=== PATIENT | male | born 1980 | race Caucasian/White ===

== ENCOUNTER → 2018-07-28 | Outpatient (CLI) | payer BC ==
--- NOTE | 2018-07-28 14:49 | XR ---
EXAMINATION TYPE: XR ribs RT w pa chest xray DATE OF EXAM: 07/28/2018 COMPARISON: 02/20/2013 TECHNIQUE: PA view of the chest and 4 views of the right ribs are submitted. HISTORY: Pain FINDINGS: Deformity lateral margin of the right fifth and sixth rib. No pneumothorax. Lungs are clear. Heart si ze is mildly enlarged. No pleural effusion. IMPRESSION: 1. Mildly displaced fractures lateral margin right fifth and sixth rib.
== END ==
LOC: RADXRMAIN 13:56
PROVIDERS: ATTEND Nurse Practitioner Family
DX: S22.41XA Multiple fractures of ribs, right side, initial encounter for closed fracture (principal)

== ENCOUNTER → 2018-12-08 | Outpatient (CLI) | payer BC ==
--- NOTE | 2018-12-12 09:24 | ECHOF ---
Referral Reason:I10 Hypertension MEASUREMENTS -------- HEIGHT: 182.9 cm WEIGHT: 217.7 kg BP: 152/79 RVIDd: 3.1 cm (< 3.3) IVSd: 1.6 cm (0.6 - 1.1) LVIDd: 5.3 cm (3.9 - 5.3) LVPWd: 1.6 cm (0.6 - 1.1) IVSs: 2.1 cm LVIDs: 3.5 cm LVPWs: 1.7 cm LA Diam: 4.0 cm (2.7 - 3.8) Ao Diam: 2.9 cm (2.0 - 3.7) EPSS: 1.2 cm MV E Andres: 0.89 m/s MV DecT: 183 ms MV A Andres: 0.63 m/s MV E/A Ratio: 1.42 RAP: 5.00 mmHg RVSP: 34.45 mmHg MV EF SLOPE: 102.11 mm/s (70 - 150) MV EXCURSION: 1.34 cm (> 18.000) FINDINGS -------- Sinus rhythm. This was a technically difficult study with suboptimal views. The left ventricular size is normal. There is moderate concentric left ventricular hypertrophy. O verall left ventricular systolic function is normal with, an EF between 60 - 65 %. The right ventricle is normal in size. The left atrial size is normal. The right atrium was not well visualized. Lumason used The aortic valve was not well visualized. The mitral valve is normal. Mild tricuspid regurgitation present. Right ventricular systolic pressure is normal at < 35 mmHg. The pulmonic valve was not well visualized. The aortic root size is normal. The inferior vena cava was not well visualized. There is no pericardial effusion. CONCLUSIONS -------- 1. Sinus rhythm. 2. This was a technically difficult study with suboptimal views. 3. The left ventricular size is normal. 4. There is moderate concentric left ventricular hypertrophy. 5. Overall left ventricular systolic function is normal with, an EF between 60 - 65 %. 6. The right ventricle is normal in size. 7. The left atrial size is normal. 8. The right atrium was not well visualized. 9. Lumason used 10. The aortic valve was not well visualized. 11. The mitral valve is normal. 12. Mild tricuspid regurgitation present. 13. Right ventricular systolic pressure is normal at < 35 mmHg. 14. The pulmonic valve was not well visualized. 15. The aortic root size is normal. 16. The inferior vena cava was not well visualized. 17. There is no pericardial effusion. STRUCTURAL MANAGER: ANTONY Lopez
== END | disposition home or self-care (01) ==
LOC: RADECHMAIN 13:00
PROVIDERS: ATTEND Internal Medicine
DX: I11.9 Hypertensive heart disease without heart failure (principal); I07.1 Rheumatic tricuspid insufficiency
CPT/HCPCS: 93306; Q9950

== ENCOUNTER → 2019-05-03 | Outpatient (CLI) | payer BC ==
--- NOTE | 2019-05-03 18:47 | US ---
EXAMINATION TYPE: US venous doppler duplex LE RT DATE OF EXAM: 05/03/2019 6:24 PM COMPARISON: US 2016 CLINICAL HISTORY: I82.401 DVT of rt lower extremity. DVT of right lower extremity per order. Tenderne ss in right leg x 6 days. No hx of DVT. Patient is not taking blood thinners. SIDE PERFORMED: Right TECHNIQUE: The lower extremity deep venous system is examined utilizing real time linear array sonog carlo with graded compression, doppler sonography and color-flow sonography. VESSELS IMAGED: Common Femoral Vein Deep Femoral Vein Greater Saphenous Vein * Femoral Vein Popliteal Vein Small Saphenous Vein * Proximal Calf Veins (* superficial vessels) Very limited exam due to large body habitus. EIV not visualized. Right Leg: No evidence of DVT in veins imaged at this time. Exam is limited. IMPRESSION: Suboptimal study without acute DVT in the right lower extremity.
== END | disposition home or self-care (01) ==
LOC: RADUSMAIN 17:53
PROVIDERS: ATTEND Internal Medicine
DX: I82.401 Acute embolism and thrombosis of unspecified deep veins of right lower extremity (principal)

== ENCOUNTER → 2019-11-09 | Outpatient (CLI) | payer BC ==
--- NOTE | 2019-11-09 14:07 | P.HPBAR ---
Bariatric H&P - History & Physicial H&P Date: 11/09/19 History & Physicial: Visit/CC: Patient initial contact: Initial weight: Initial weight in pounds: Height: Initial BMI: Last weight: Current weight: Current weight in pounds: Current BMI: [place] body weight (based on NIH guidelines): Excess body weight loss: The patient is a 39 year-old M who presents for Bariatric Assessment. Patient here today for new patient bariatric evaluation. Patient is interested in sleeve gastrectomy. Patient suffers from hypertension, varicose veins, mild GERD symptoms. No history of DVT or dysphagia. Patient did smoke up until 6.5 years ago. No abdominal surgeries. No history of DVT or dysphagia. Does have history of venous stasis however. Has had venous ulcers. BMI 68. Review of Systems The patient denies any acute changes in vision or hearing, no dysphagia or odynophagia, no chest pain or shortness of breath, no dysuria or hematuria, no headache, no runny nose, no rectal bleeding or melena, no unexplained weight loss Past Medical History Past Medical History: No Reported History History of Any Multi-Drug Resistant Organisms: None Reported Additional Past Surgical History / Comment(s): VEIN STRIPPING Smoking Status: Never smoker Past Alcohol Use History: Occasional Past Drug Use History: None Reported Surgical - Exam Physical exam: General: Well-developed, well-nourished HEENT: Normocephalic, sclerae nonicteric Abdomen: Nontender, nondistended Extremities: Bilateral lower extremity edema with rubor right greater than left Neuro: Alert and oriented Bariatric Assessment & Plan (1) Morbid obesity with BMI of 60.0-69.9, adult Narrative/Plan: 39-year-old male with morbid obesity and associated comorbidities. Options of sleeve gastrectomy and gastric bypass discussed in detail. Both the risks and benefits of both procedures reviewed. The expected increased weight based on averages of the bypass over the sleeve was reviewed. Despite that patient still leaning towards sleeve gastrectomy which is not unreasonable given the risk profile. Patient will continue to consider these options. In the meanwhile will plan preoperative EGD and lab work. Await medical clearance and support letters. Await psych eval. Patient here today with his who is also interested in sleeve gastrectomy. Status: Acute Bariatric Checklist Checklist: Plan: Checklist: EGD: 1. Hiatal hernia: 2. H. Pylori: HgbA1c: Vitamin D: Smoking: Never smoker Primary care physician referral: Psychiatry clearance: Cardiology clearance: Sleep study: Diet journal: VTE risk score: VTE risk level: Rehab needs at discharge:
[2019-11-09 14:24] VITALS: BP 120/82; PULSE 72; RESP 16; TEMP 98.6; BMI 68.0
[2019-11-09 14:59] LABS: HCT 43.2 % (39.0-53.0); MCHC 34.6 g/dL (31.0-37.0); MCV 86.5 fL (80.0-100.0); Mean Platelet Volume 7.8; Platelet Count 188 k/uL (150-450); RDW 13.2 % (11.5-15.5); WBC 7.8 k/uL (3.8-10.6)
[2019-11-09 20:15] LABS: % Iron Saturation 16.9 (15.00-50.00); African American GFR (CKD) 137.8 (60.0-200.0); Albumin 4.3 g/dL (3.80-4.90); Albumin/Globulin Ratio 1.65 (1.60-3.17); Anion Gap 7.6 mmol/L (4.00-12.00); BUN/Creat Ratio 18.57 Ratio (12.00-20.00); Calcium 9.7 mg/dL (8.7-10.3); Carbon Dioxide 28.4 mmol/L (21.6-31.8); Globulin 2.6 g/dL (1.6-3.3); Non-African American GFR(CKD) 118.9 (60.0-200.0); Potassium 3.7 mmol/L (3.5-5.5); Total Bilirubin 0.5 mg/dL (0.3-1.2); Total Protein 6.9 g/dL (6.2-8.2)
[2019-11-09 21:24] LABS: Folate, Serum 19.5 ng/mL
[2019-11-09 21:34] LABS: Hemoglobin A1C 5.5 % (4.0-6.0)
== END | disposition home or self-care (01) ==
LOC: BARWHC3 13:28
PROVIDERS: ATTEND Surgery
DX: E66.01 Morbid (severe) obesity due to excess calories (principal); Z68.44 Body mass index [BMI] 60.0-69.9, adult; K90.89 Other intestinal malabsorption; E55.9 Vitamin D deficiency, unspecified
CPT/HCPCS: 80053; 82306; 82607; 82746; 83036; 83540; 83550; 84425; 85027; 86769; 93005; 99211

== ENCOUNTER 2019-12-12 10:40 | Day surgery (SDC) | payer BC ==
[2019-12-11 08:51] VITALS: BMI 68.5
[~2019-12-12 10:40] MED LIST: LACTATED RINGERS 1,000 ML IV SCH
[2019-12-12] MEDS ORDERED: LACTATED RINGERS 1,000 ML IV ONE (10:55)
[2019-12-12 11:01] VITALS: TEMP 98.1
--- NOTE | 2019-12-12 11:42 | P.GSHP ---
History of Present Illness H&P Date: 12/12/19 Chief Complaint: GERD 39-year-old male here today for upper endoscopy. Patient is being evaluated for sleeve gastrectomy. Patient with mild reflux. No dysphagia. Past Medical History Past Medical History: Heart Failure, Hypertension History of Any Multi-Drug Resistant Organisms: None Reported Additional Past Surgical History / Comment(s): VEIN STRIPPING, laser sx maricruz legs, wisdom teeth Past Anesthesia/Blood Transfusion Reactions: No Reported Reaction Past Psychological History: Anxiety Additional Psychological History / Comment(s): with procedures Past Alcohol Use History: Occasional Additional Past Alcohol Use History / Comment(s): quit smoking 2013, smoked 1 to 1 and 1/2ppd for 14 yrs Past Drug Use History: None Reported - Past Family History Mother Family Medical History: Cancer Additional Family Medical History / Comment(s): breast and thyroid Medications and Allergies Home Medications Medication Instructions Recorded Confirmed Type Furosemide [Lasix] 20 mg PO HS 11/09/19 12/12/19 History Metoprolol Succinate [Toprol XL] 25 mg PO HS 11/09/19 12/12/19 History Lisinopril-Hctz 20-12.5 mg 2 tab PO HS 12/11/19 12/12/19 History [Zestoretic 20-12.5] Allergies Allergy/AdvReac Type Severity Reaction Status Date / Time Penicillins Allergy Chest Pain Verified 12/12/19 10:53 Surgical - Exam Vital Signs Temp Pulse Resp BP Pulse Ox 98.1 F 68 16 138/74 98 12/12/19 10:59 12/12/19 10:59 12/12/19 10:59 12/12/19 10:59 12/12/19 10:59 Physical exam: General: Well-developed, well-nourished HEENT: Normocephalic, sclerae nonicteric Abdomen: Nontender, nondistended Extremities: No edema Neuro: Alert and oriented Assessment and Plan (1) GERD (gastroesophageal reflux disease) Narrative/Plan: Will proceed with upper endoscopy at this time Current Visit: Yes Status: Acute Code(s): K21.9 - GASTRO-ESOPHAGEAL REFLUX DISEASE WITHOUT ESOPHAGITIS SNOMED Code(s): 286044594
[2019-12-12] MEDS ORDERED: LIDOCAINE 1% INJ 10MG/ML (20 ML MDV) ONE (11:43)
[2019-12-12] MEDS ORDERED: PROPOFOL 10 MG/ML 20 ML VIAL IV ONE (11:43)
--- NOTE | 2019-12-12 11:53 | P.PCN ---
Date of Procedure: 12/12/19 Procedure(s) Performed: EPreoperative Dx: GERD, presurgical Postoperative Dx: Minimal gastritis Procedure: EGD with Bx Anesthesia: Sedation Endoscopist: Dr. Monk Specimens: Antrum Endoscopic Procedure: The patient was on the endoscopy table in the left decubitus position. The Olympus gastroscope was inserted into the oropharynx and passed under direct visualization to the region of the third portion of the duodenum. From that point the scope was slowly withdrawn inspecting all surfaces carefully. There were no neoplastic inflammatory or polypoid lesions throughout the duodenum. The pylorus was widely patent. The stomach was carefully inspected. There was minimal gastritis present. A biopsy of the antrum took place to rule out H. pylori. Retroflexion revealed a normal hiatus. The esophagus was then carefully examined. There were no neoplastic inflammatory or polypoid lesions throughout the visualized esophagus. The patient was then taken to the recovery room in stable condition per anesthesia guidelines. Recommendations: Await biopsy results. Continue bariatric workup Disposition: observation
[2019-12-12 11:59] VITALS: RESP 20
[2019-12-12 12:22] VITALS: BP 106/72; PULSE 59
== END 2019-12-12 12:35 | disposition home or self-care (01) ==
LOC: ORWHC2ENDO 10:40
PROVIDERS: ATTEND Surgery
DX: K21.9 Gastro-esophageal reflux disease without esophagitis (principal); K29.50 Unspecified chronic gastritis without bleeding; Z98.84 Bariatric surgery status; I11.0 Hypertensive heart disease with heart failure; I50.9 Heart failure, unspecified; F41.9 Anxiety disorder, unspecified; E66.01 Morbid (severe) obesity due to excess calories; Z87.891 Personal history of nicotine dependence; Z80.9 Family history of malignant neoplasm, unspecified; Z79.899 Other long term (current) drug therapy; Z88.0 Allergy status to penicillin; Z68.44 Body mass index [BMI] 60.0-69.9, adult
CPT/HCPCS: 88305; 43239; J2001; J2704

== ENCOUNTER → 2019-12-18 | Outpatient (CLI) | payer BC ==
[2019-12-18 11:54] VITALS: BMI 68.0
== END | disposition home or self-care (01) ==
LOC: BARWHC3 08:43
PROVIDERS: ATTEND Surgery
DX: E66.01 Morbid (severe) obesity due to excess calories (principal); Z71.3 Dietary counseling and surveillance
CPT/HCPCS: 97804; 99211

== ENCOUNTER → 2020-01-02 | Outpatient (CLI) | payer BC ==
[2020-01-02 13:37] VITALS: BP 136/79; PULSE 74; RESP 16; TEMP 97.8; BMI 67.8
--- NOTE | 2020-01-02 15:02 | P.BASOAP ---
Subjective Progress Note Date: 01/02/20 Principal diagnosis: Morbid obesity Patient remains interested in sleeve gastrectomy. Returning after recent upper endoscopy showed minimal gastritis. Patient has obtained medical clearance with low to medium risk for his primary care physician. Otherwise no changes to the previous history and physical. Objective - Vital Signs Vital signs: Vital Signs Temp 97.8 F 01/02/20 13:34 Pulse 74 01/02/20 13:34 Resp 16 01/02/20 13:34 BP 136/79 01/02/20 13:34 Pulse Ox Intake & Output 01/01/20 01/02/20 01/02/20 18:59 06:59 18:59 Weight 228.611 kg - Exam Physical exam: General: Well-developed, well-nourished HEENT: Normocephalic, sclerae nonicteric Abdomen: Nontender, nondistended Extremities: No edema Neuro: Alert and oriented Assessment/Plan (1) Morbid obesity with BMI of 60.0-69.9, adult Narrative/Plan: 39-year-old male remains interested in sleeve gastrectomy. Gastric bypass and sleeve options once again reviewed. Surgical consent form reviewed with patient and his in detail. Medical clearance obtained from his primary care physician. We'll proceed with sleeve gastrectomy in the near future. Will stagger his surgery with his 's surgery with hers being first. All questions answered. Plan: Date: 01/02/20 Initial Weight: 229.064 kg Initial BMI: 68.0 Current Weight: 228.611 kg Current BMI: 67.8 Type of Surgery: Vertical Sleeve Gastrectomy Total Volume in Band: Previous Volume: Volume Removed: Volume Added: Band Size:
== END | disposition home or self-care (01) ==
LOC: BARWHC3 13:00
PROVIDERS: ATTEND Surgery
DX: E66.01 Morbid (severe) obesity due to excess calories (principal); Z68.44 Body mass index [BMI] 60.0-69.9, adult; K29.70 Gastritis, unspecified, without bleeding
CPT/HCPCS: 99211

== ENCOUNTER → 2020-03-05 | Outpatient (CLI) | payer BC ==
[2020-03-05 07:59] LABS: Basophils % (A) 1 %; Eosinophils # (A) 0.6 k/uL (0-0.7); Eosinophils % (A) 8 %; HCT 43.4 % (39.0-53.0); Lymphocytes # (A) 1.9 k/uL (1.0-4.8); Lymphocytes % (A) 27 %; MCH 30.4 pg (25.0-35.0); MCHC 34.5 g/dL (31.0-37.0); MCV 88.2 fL (80.0-100.0); Monocytes # (A) 0.4 k/uL (0-1.0); Monocytes % (A) 6 %; Neutrophils # (A) 3.9 k/uL (1.3-7.7); Neutrophils % (A) 56 %; Platelet Count 167 k/uL (150-450); RBC 4.92 m/uL (4.30-5.90)
[2020-03-05 08:11] LABS: ALT 53 U/L (4-49); AST 40 U/L (17-59); African American GFR (CKD) >90 (>60 ml/min/1.73 sqM); Albumin 4.1 g/dL (3.5-5.0); Alkaline Phosphatase 58 U/L (38-126); Anion Gap 8 mmol/L; Blood Urea Nitrogen 15 mg/dL (9-20); Calcium 9.5 mg/dL (8.4-10.2); Carbon Dioxide 29 mmol/L (22-30); Chloride 99 mmol/L (98-107); Glucose 94 mg/dL (74-99); Non-African American GFR(CKD) >90 (>60 ml/min/1.73 sqM); Potassium 3.9 mmol/L (3.5-5.1); Sodium 136 mmol/L (137-145); Total Bilirubin 0.8 mg/dL (0.2-1.3); Total Protein 7.1 g/dL (6.3-8.2)
== END | disposition home or self-care (01) ==
LOC: LABPAT 07:14
PROVIDERS: ATTEND Surgery
DX: Z01.818 Encounter for other preprocedural examination (principal)
CPT/HCPCS: 36415; 80053; 85025

== ENCOUNTER 2020-03-11 08:39 | Inpatient (IN) | payer BC ==
[~2020-03-11 08:39] MED LIST changes: +ACETAMINOPHEN TAB 500 MG TAB PO ONE; +DEXAMETHASONE SOD PHOSPHATE 10 MG/ML 1 ML VIAL IV ONE; +ENOXAPARIN 40 MG/0.4 ML SYRINGE SQ ONE; -LACTATED RINGERS 1,000 ML IV SCH; +ONDANSETRON 4 MG/2 ML VIAL IVP ONE; +SCOPOLAMINE 1.5MG/72HR PATCH TRANSDERM ONE; +ceFAZolin 3 GM in SODIUM CHLORIDE 0.9% 100 ML IVPB ONE
[2020-03-11] MEDS: LACTATED RINGERS 1,000 ML IV SCH ×2 (09:09→22:59)
--- NOTE | 2020-03-11 09:13 | P.GSHP ---
History of Present Illness H&P Date: 03/11/20 Chief Complaint: Morbid obesity 39-year-old male known to our service. Patient is here today for elective sleeve gastrectomy. Patient suffers from hypertension and varicose veins mild GERD symptoms. No history of DVT or dysphagia. No current tobacco use. Recent EGD showed mild gastritis. BMI when seen in the office was 68. Patient does have a history of venous stasis. Past Medical History Past Medical History: Hypertension, Sleep Apnea/CPAP/BIPAP Additional Past Medical History / Comment(s): states enlarged heart, sleep apnea- no machine, varicose veins. History of Any Multi-Drug Resistant Organisms: None Reported Additional Past Surgical History / Comment(s): VEIN STRIPPING, laser sx maricruz legs, wisdom teeth, EGD Past Anesthesia/Blood Transfusion Reactions: No Reported Reaction Past Psychological History: No Psychological Hx Reported Smoking Status: Former smoker Past Alcohol Use History: Occasional Additional Past Alcohol Use History / Comment(s): quit smoking 2013, smoked 1-1 1/2 ppd for 14 yrs. Past Drug Use History: None Reported - Past Family History Mother Family Medical History: Cancer Additional Family Medical History / Comment(s): breast and thyroid Medications and Allergies Home Medications Medication Instructions Recorded Confirmed Type Furosemide [Lasix] 20 mg PO HS 11/09/19 03/07/20 History Lisinopril-Hctz 20-12.5 mg 2 tab PO HS 12/11/19 03/07/20 History [Zestoretic 20-12.5] Metoprolol Succinate [Toprol XL] 50 mg PO DAILY 03/07/20 03/07/20 History Multivit-Min/Folic/Vit K/Lycop 1 each PO DAILY 03/07/20 03/07/20 History [Men's Multivitamin Tablet] Allergies Allergy/AdvReac Type Severity Reaction Status Date / Time Penicillins Allergy Chest Verified 03/07/20 09:22 Pain-unsure if it was panic attack. Surgical - Exam Vital Signs Temp Pulse Resp BP Pulse Ox 98.0 F 76 16 119/66 99 03/11/20 09:01 03/11/20 09:01 03/11/20 09:01 03/11/20 09:01 03/11/20 09:01 Physical exam: General: Well-developed, well-nourished HEENT: Normocephalic, sclerae nonicteric Abdomen: Nontender, nondistended Extremities: No edema Neuro: Alert and oriented Assessment and Plan (1) Morbid obesity with BMI of 60.0-69.9, adult Narrative/Plan: Will proceed with sleeve gastrectomy at this time. The risks of bleeding, infection, stenosis, stricture, leak, abscess, fistula formation, peritonitis, poor weight loss, reflux, vomiting, conversion to an open procedure, aborting sleeve gastrectomy, ME, PE, DVT, and were discussed. The patient understands and wishes to proceed. Current Visit: No Status: Acute Code(s): E66.01 - MORBID (SEVERE) OBESITY DUE TO EXCESS CALORIES; Z68.44 - BODY MASS INDEX (BMI) 60.0-69.9, ADULT SNOMED Code(s): 105311907
[2020-03-11] MEDS ORDERED: MIDAZOLAM 2 MG/2 ML VIAL ONE (11:01)
[2020-03-11] MEDS ORDERED: PROPOFOL 10 MG/ML 20 ML VIAL IV ONE (11:01)
[2020-03-11] MEDS ORDERED: PHENYLEPHRINE-0.9% NACL SYG 1 MG/10 ML SYRINGE ONE (11:01)
[2020-03-11] MEDS ORDERED: SUCCINYLCHOLINE CHLORIDE VIAL 200 MG/10 ML VIAL IV ONE (11:01)
[2020-03-11] MEDS ORDERED: ROCURONIUM 10 MG/ML (10 ML VIAL) IV ONE (11:01)
[2020-03-11] MEDS ORDERED: NEOSTIGMINE 1 MG/ML 10 ML VIAL ONE (11:01)
[2020-03-11] MEDS ORDERED: GLYCOPYRROLATE 0.2 MG/ML 2 ML VIAL ONE (11:01)
[2020-03-11] MEDS ORDERED: fentaNYL (PF) 50 MCG/ML 2 ML AMP ONE (11:01)
[2020-03-11] MEDS ORDERED: BUPIVACAINE (PF) 0.25% 30 ML VIAL SQ ONE ×3 (11:37→11:49)
[2020-03-11] MEDS ORDERED: ONDANSETRON 4 MG/2 ML VIAL IVP PRN (13:23)
[2020-03-11] MEDS ORDERED: SIMETHICONE 40 MG/0.6 ML DROPS 2,000 MG/30 ML BOTTLE PO PRN (13:23)
[2020-03-11] MEDS ORDERED: diphenhydrAMINE 50 MG/ML 1 ML VIAL IVP PRN (13:23)
[2020-03-11] MEDS ORDERED: HYOSCYAMINE ORAL DROPS 1.875 MG/15 ML BOTTLE PO PRN (13:23)
[2020-03-11] MEDS ORDERED: NALOXONE 0.4 MG/ML 1 ML VIAL IV PRN (13:23)
--- NOTE | 2020-03-11 13:28 | P.OP ---
Date of Procedure: 03/11/20 Procedure(s) Performed: PREOPERATIVE DIAGNOSIS: Morbid obesity, hypertension, GERD POSTOPERATIVE DIAGNOSIS: Same PROCEDURE: Laparoscopic sleeve gastrectomy SURGEON: Aleshia EBL: Minimal ANESTHESIA: General COMPLICATIONS: None OPERATIVE PROCEDURE: Patient was placed in the operating table in the supine position. He was placed under general anesthesia at that time. The abdomen was prepped and draped in sterile fashion after the patient was placed in lithotomy. A 5 mm optical trocar was used to enter the abdominal cavity in the left upper quadrant. Insufflation took place to 15 millimeters mercury. An additional right subxiphoid 5 mm trocar was then placed under direct visualization and then removed. The patient had some adhesions between the omentum and the left upper abdominal wall that required dissection using the LigaSure device. Following that 2 additional 5 mm trochars were placed in the right upper quadrant and left upper quadrant under direct visualization and a 15 mm trocar in the supraumbilical location. The liver was retracted using a medium Cameron liver retractor through the right subxiphoid trocar site. The hiatus was inspected. The patient had no visible hiatal hernia At that point I moved to the mid aspect of the greater curvature the stomach. The short gastric vasculature was divided using a LigaSure device proximally. I then switched and divided the short gastrics distally to a 3-4 cm from the pylorus. The dissection took place up to the left diaphragmatic crura at that point. The posterior short gastrics were likewise divided using the LigaSure device. Once the stomach was fully mobilized the blunt tipped 40-[place] bougie dilator was advanced into the stomach and advanced all the way to the prepyloric location. A black echelon 60 stapler was utilized and fired tangentially across the antrum taking care to avoid narrowing at the incisura angularis. Our second firing of the stapler was also a black load. Subsequent firings of the stapler took place. A total of 4 green echelon 60 staplers with seam guard took place proximally staying on the outer edge of our dilator. Once we reached the most proximal portion of the stomach a single firing of the gold echelon 60 stapler without seen guard took place. The oral gastric tube was reinserted. The stomach was insufflated with approximately 100 mL of methylene blue. No evidence of leak or obstruction was seen. The distal aspect of the sleeve was then reapproximated to the gastrosplen ic and gastrocolic ligament using a short running 2-0 strata fix suture. This was done to prevent kinking or twisting of the sleeve. Tisseel fibrin glue was used along the length of the staple line. The stomach remnant was removed from the 15 mm trocar site without difficulty. The fascia at the 15 more site was closed using interrupted 0 Vicryl sutures with the laparoscopic suture passer and Vlad Mitchel technique. The insufflation was evacuated. The skin at all 5 incisions were closed using 4-0 Monocryl sutures. Skin glue was then applied. DISPOSITION: Stable to recovery room
[2020-03-11] MEDS ORDERED: HYDROmorphone 0.5 MG/0.5 ML SYRINGE IVP ONE (13:29)
[2020-03-11] MEDS ORDERED: LACTATED RINGERS 1,000 ML IV ONE (13:30)
[2020-03-11] MEDS ORDERED: HYDROmorphone 1 MG/ML 1 ML SYRINGE IVP ONE ×2 (13:35→14:00)
[2020-03-11] MEDS ORDERED: ACETAMINOPHEN IV (For NPO) 1,000 MG in EMPTY BAG 1 BAG IVPB ONE (14:00)
[2020-03-11] MEDS: ALBUTEROL NEBULIZED 2.5 MG/3 ML INHALATION SCH ×2 (15:52→20:27)
--- NOTE | 2020-03-11 15:53 | P.CONS ---
History of Present Illness - Reason for Consult Consult date: 03/11/20 Medical management Requesting physician: Mike Monk - History of Present Illness HISTORY OF PRESENT ILLNESS This is a 39-year-old male patient of Dr. Chun with past medical history of hypertension, suspected obstructive sleep apnea-not tested, morbid obesity, remote history of tobacco use. Patient has been brought into the hospital by both status post laparoscopic sleeve gastrectomy. Patient states that his pain is currently controlled. He is found sitting on the edge of the bed. He denies any lightheadedness or dizziness. No nausea. Blood pr essure is 131/64, heart rate 71, pulse ox 96% on room air. REVIEW OF SYSTEMS Constitutional: No fever, no chills, no night sweats. No weight change. No weakness, fatigue or lethargy. EENT: No headache. No blurred vision. No dizziness. No epistaxis. No sore throat. Lungs: No shortness of breath, cough, no sputum production. No wheezing. Cardiovascular: No chest pain, no lower extremity edema. No lightheadedness or dizziness. No syncopal episodes. Abdominal: Mild abdominal discomfort. No nausea, vomiting. No diarrhea. No constipation. No bloody or tarry stools. Genitourinary: No dysuria. No urinary retention. Musculoskeletal: No myalgias. No muscle weakness, no gait dysfunction, no frequent falls. No back pain. No neck pain. Integumentary: No wounds. No rash or pruritus. Neurologic: No aphasia. No facial droop. No change in mentation. No headache. Psychiatric: No depression. No anxiety. Endocrine: No abnormal blood sugars. SOCIAL HISTORY Patient was a smoker of 1-1/2 packs per day for 14 years and quit in 2013. No marijuana or street drug use. He drinks alcohol occasionally. 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 FAMILY HISTORY Mother is alive at age 60 with history of breast cancer and thyroid cancer. Father is alive at age 59 with history of alcoholism, generalized osteoarthritis of bilateral hips, tobacco use and dependence possible heart problems. Patient has one brother with GI problems. He does not have any sisters. He has 3 children with no major medical problems. PHYSICAL EXAMINATION Gen: This is a 39-year-old morbidly obese male. He is sitting on the edge of the bed and appears to be comfortable and in no acute distress. HEENT: Head is atraumatic, normocephalic. Pupils equal, round. Sclerae is anicteric. NECK: Supple. No JVD. No lymphadenopathy. No thyromegaly. LUNGS: Clear to auscultation. No wheezes or rhonchi. No intercostal retractions. HEART: Regular rate and rhythm. No murmur. ABDOMEN: Soft. Bowel sounds are present. No masses. No significant tenderness. Puncture sites show no significant drainage, bleeding, erythema. EXTREMITIES: No pitting pedal edema. No calf tenderness. Dorsalis pedis +2 bilaterally. NEUROLOGICAL: Patient is awake, alert and oriented x3. Cranial nerves 2 through 12 are grossly intact. ASSESSMENT AND PLAN 1. Morbid obesity with BMI of 64 status post laparoscopic sleeve gastrectomy, postop day 0. Continue current pain management, diet is nothing by mouth except for ice chips. Upper GI ordered for the morning. Incentive spirometry to reduce incidence of atelectasis and hospital-acquired pneumonia. 2. Hypertension. Resume Toprol-XL 50 mg daily in the morning, lisinopril/hydrochlorothiazide tonight with parameters. 3. Suspected obstructive sleep apnea. Patient will have workup as an outpatie nt. 4. Morbid obesity with BMI of 64. 5. Remote history of tobacco use and dependence. 6. DVT prophylaxis. Lovenox 60 mg subcu every 12 hours. 7. GI prophylaxis. Protonix IV. Thank you kindly for this consultation. We will be happy to follow along with you during this hospitalization. Discharge plan: home. Impression and plan of care have been directed as dictated by the signing phys jelly. Tuyet Cervantes nurse practitioner acting as scribe for signing physician. Past Medical History Past Medical History: Hypertension, Sleep Apnea/CPAP/BIPAP Additional Past Medical History / Comment(s): states enlarged heart, sleep apnea- no machine, varicose veins. History of Any Multi-Drug Resistant Organisms: None Reported Additional Past Surgical History / Comment(s): VEIN STRIPPING, laser sx maricruz legs, wisdom teeth, EGD Past Anesthesia/Blood Transfusion Reactions: No Reported Reaction Past Psychological History: No Psychological Hx Reported Additional Psychological History / Comment(s): with procedures Smoking Status: Former smoker Past Alcohol Use History: Occasional Additional Past Alcohol Use History / Comment(s): quit smoking 2013, smoked 1-1 1/2 ppd for 14 yrs. Past Drug Use History: None Reported - Past Family History Mother Family Medical History: Cancer Additional Family Medical History / Comment(s): breast and thyroid Medications and Allergies Home Medications Medication Instructions Recorded Confirmed Type Furosemide [Lasix] 20 mg PO HS 11/09/19 03/07/20 History Lisinopril-Hctz 20-12.5 mg 2 tab PO HS 12/11/19 03/07/20 History [Zestoretic 20-12.5] Metoprolol Succinate [Toprol XL] 50 mg PO DAILY 03/07/20 03/07/20 History Multivit-Min/Folic/Vit K/Lycop 1 each PO DAILY 03/07/20 03/07/20 History [Men's Multivitamin Tablet] Allergies Allergy/AdvReac Type Severity Reaction Status Date / Time Penicillins Allergy Chest Verified 03/07/20 09:22 Pain-unsure if it was panic attack. Physical Exam Vitals: Vital Signs Temp Pulse Resp BP Pulse Ox 03/11/20 14:25 71 16 131/64 96 03/11/20 14:10 72 16 112/66 96 03/11/20 13:55 66 16 117/55 97 03/11/20 13:40 68 16 109/56 100 03/11/20 13:26 98 F 97 16 121/64 97 03/11/20 09:01 98.0 F 76 16 119/66 99 Intake and Output 03/11/20 03/11/20 03/11/20 06:59 14:59 22:59 Intake Total 1600 Output Total 20 Balance 1580 Intake: IV 1600 Output: Estimated Blood Loss 20 Other: Weight 215.5 kg
[2020-03-11] MEDS: 0.9% NACL WITH KCL 20 MEQ/L 1,000 ML IV SCH ×2 (16:09→22:57)
[2020-03-11] MEDS: ENOXAPARIN 60 MG/0.6 ML SYRINGE SQ SCH (21:15)
[2020-03-11] MEDS: LISINOPRIL-HCTZ 20-12.5 MG 1 EACH TAB PO SCH (21:15)
[2020-03-11] MEDS: HYDROmorphone 1 MG/ML 1 ML SYRINGE IVP PRN (21:18)
[2020-03-12] MEDS: 0.9% NACL WITH KCL 20 MEQ/L 1,000 ML IV SCH (06:12)
[2020-03-12 06:40] LABS: Basophils % (A) 0 %; Eosinophils # (A) 0.1 k/uL (0-0.7); Eosinophils % (A) 1 %; HCT 41.5 % (39.0-53.0); HGB 14.4 gm/dL (13.0-17.5); Lymphocytes # (A) 1.5 k/uL (1.0-4.8); Lymphocytes % (A) 12 %; MCH 30.6 pg (25.0-35.0); MCHC 34.7 g/dL (31.0-37.0); MCV 88.4 fL (80.0-100.0); Mean Platelet Volume 7.6; Monocytes # (A) 0.7 k/uL (0-1.0); Monocytes % (A) 6 %; Neutrophils # (A) 9.8 k/uL (1.3-7.7); Neutrophils % (A) 80 %; Platelet Count 175 k/uL (150-450); RDW 12.9 % (11.5-15.5); WBC 12.2 k/uL (3.8-10.6)
[2020-03-12] MEDS: ALBUTEROL NEBULIZED 2.5 MG/3 ML INHALATION SCH ×4 (08:40→19:33)
[2020-03-12] MEDS: 1: MVI, ADULT NO.4 WITH VIT K 10 ML, THIAMINE 100 MG, FOLIC ACID 1 MG, POTASSIUM CHLORID IV SCH ×12 (08:58→17:36)
--- NOTE | 2020-03-12 08:58 | FL ---
EXAMINATION TYPE: FL UGI DATE OF EXAM: 03/12/2020 CLINICAL HISTORY: Status post gastric sleeve 50ml isovue 370 used, 21sec fl time The patient ingested contrast without difficulty or delay. Noted are postsurgical changes of gastric sleeve. There is no evidence for leak or obstruction. Contrast is noted within the duodenum. IMPRESSION: Post-surgical change of gastric sleeve without evidence for obstruction or leak at this point in time.
[2020-03-12] MEDS: HYDROmorphone 1 MG/ML 1 ML SYRINGE IVP PRN (09:00)
[2020-03-12] MEDS: ENOXAPARIN 60 MG/0.6 ML SYRINGE SQ SCH ×2 (09:01→21:26)
[2020-03-12 09:28] LABS: African American GFR (CKD) 130.4 (60.0-200.0); Anion Gap 11.1 mmol/L (4.00-12.00); Carbon Dioxide 25.9 mmol/L (21.6-31.8); Magnesium 1.6 mg/dL (1.5-2.4); Non-African American GFR(CKD) 112.5 (60.0-200.0); Phosphorus 3.1 mg/dL (2.4-5.1)
[2020-03-12] MEDS: PANTOPRAZOLE 40 MG/10 ML VIAL IV SCH (09:49)
[2020-03-12] MEDS: METOPROLOL SUCCINATE (ER) 50 MG TAB.ER.24H PO SCH (09:50)
--- NOTE | 2020-03-12 12:22 | P.PN ---
<Siri Rodríguez - Last Filed: 03/12/20 12:18> Subjective Progress Note Date: 03/12/20 CHIEF COMPLAINT: Morbid obesity HISTORY OF PRESENT ILLNESS: Patient is status post laparoscopic sleeve gastrectomy. He is reporting that his pain is controlled. He denies any nausea or vomiting. Patient denies passing any gas. He had his upper GI which shows no evidence of obstruction or leak. He is afebrile. White count 12.2 PHYSICAL EXAM: VITAL SIGNS: Reviewed. GENERAL: Well-developed in no acute distress. HEENT: No sclera icterus. Extraocular movements grossly intact. Moist buccal mucosa. Head is atraumatic, normocephalic. ABDOMEN: Soft. Obese. Nondistended. Incision sites clean dry and intact NEUROLOGIC: Alert and oriented. Cranial nerves II through XII grossly intact. ASSESSMENT: 1. Morbid obesity status post laparoscopic sleeve gastrectomy. Postop day #1 2. GERD 3. Hypertension PLAN: -Start patient on Yovany clear liquid diet -Encouraged patient to ambulate and use incentive spirometer -Continue pain medication as needed -DVT prophylaxis Lovenox and GI prophylaxis Protonix Physician C Developer note has been reviewed by physician. Signing provider agrees with the documented findings, assessment, and plan of care. Objective - Vital Signs Vital signs: Vital Signs Temp 98.4 F 03/12/20 07:08 Pulse 72 03/12/20 07:08 Resp 16 03/12/20 07:08 BP 137/76 03/12/20 07:08 Pulse Ox 93 L 03/12/20 09:35 Intake & Output 03/11/20 03/12/20 03/12/20 18:59 06:59 18:59 Intake Total 1600 Output Total 20 Balance 1580 Weight 215.5 kg Intake: IV 1600 Output: Estimated Blood Loss 20 Other: Voiding Method Urinal # Voids 3 - Labs CBC & Chem 7: 03/12/20 06:07 03/12/20 06:07 Labs: Abnormal Lab Results - Last 24 Hours (Table) 03/12/20 Range/Units 06:07 WBC 12.2 H (3.8-10.6) k/uL Neutrophils # 9.8 H (1.3-7.7) k/uL <Mike Monk - Last Filed: 03/12/20 12:25> Subjective As above. Patient did well today. Begin bariatric clear liquid diet. Possible discharge tomorrow if tolerating liquids well. Objective - Vital Signs Vital signs: Vital Signs Temp 98.4 F 03/12/20 07:08 Pulse 72 03/12/20 07:08 Resp 16 03/12/20 07:08 BP 137/76 03/12/20 07:08 Pulse Ox 93 L 03/12/20 09:35 Intake & Output 03/11/20 03/12/20 03/12/20 18:59 06:59 18:59 Intake Total 1600 Output Total 20 Balance 1580 Weight 215.5 kg Intake: IV 1600 Output: Estimated Blood Loss 20 Other: Voiding Method Urinal # Voids 3 - Labs CBC & Chem 7: 03/12/20 06:07 03/12/20 06:07 Labs: Abnormal Lab Results - Last 24 Hours (Table) 03/12/20 Range/Units 06:07 WBC 12.2 H (3.8-10.6) k/uL Neutrophils # 9.8 H (1.3-7.7) k/uL Assessment and Plan (1) Morbid obesity with BMI of 60.0-69.9, adult Current Visit: No Status: Acute Code(s): E66.01 - MORBID (SEVERE) OBESITY DUE TO EXCESS CALORIES; Z68.44 - BODY MASS INDEX (BMI) 60.0-69.9, ADULT SNOMED Code(s): 103493401
[2020-03-12 12:51] VITALS: BMI 64.4
--- NOTE | 2020-03-12 14:52 | P.PN ---
Subjective Progress Note Date: 03/12/20 HISTORY OF PRESENT ILLNESS This is a 39-year-old male patient of Dr. Chun with past medical history of hypertension, suspected obstructive sleep apnea-not tested, morbid obesity, remote history of tobacco use. Patient has been brought into the hospital by Dr. lane status post laparoscopic sleeve gastrectomy. Patient states that his pain is currently controlled. He is found sitting on the edge of the bed. He denies any lightheadedness or dizziness. No nausea. Blood pressure is 131/64, heart rate 71, pulse ox 96% on room air. 03/12: Patient is seen today in follow-up. He is ambulating with therapies down the smith and doing well. He has not passed gas. No nausea or vomiting. He has been afebrile, heart rate 72, blood pressure 137/76, pulse ox 93% on room air. WBC 12.2, hemoglobin 14.4, platelet count 175. Upper GI was completed this morning that revealed no evidence of obstruction or leak. Patient is to start a clear liquid diet today. Anticipate probable discharge home tomorrow. REVIEW OF SYSTEMS Constitutional: No fever, no chills, no night sweats. No weight change. No weakness, fatigue or lethargy. EENT: No headache. No blurred vision. No dizziness. No epistaxis. No sore throat. Lungs: No shortness of breath, cough, no sputum production. No wheezing. Cardiovascular: No chest pain, no lower extremity edema. No lightheadedness or dizziness. No syncopal episodes. Abdominal: Mild abdominal discomfort. No nausea, vomiting. No diarrhea. No bloody or tarry stools. Genitourinary: No dysuria. No urinary retention. Musculoskeletal: No myalgias. No muscle weakness, no gait dysfunction, no frequent falls. No back pain. No neck pain. Integumentary: No wounds. No rash or pruritus. Neurologic: No aphasia. No facial droop. No change in mentation. No headache. Psychiatric: No depression. No anxiety. Endocrine: No abnormal blood sugars. PHYSICAL EXAMINATION Gen: This is a 39-year-old morbidly obese male. No acute distress. HEENT: Head is atraumatic, normocephalic. Pupils equal, round. Sclerae is anicteric. NECK: Supple. No JVD. No lymphadenopathy. No thyromegaly. LUNGS: Clear to auscultation. No wheezes or rhonchi. No intercostal retractions. HEART: Regular rate and rhythm. No murmur. ABDOMEN: Soft. Bowel sounds are present. No masses. No significant tenderness. Puncture sites show no significant drainage, bleeding, erythema. EXTREMITIES: No pitting pedal edema. No calf tenderness. Dorsalis pedis +2 bilaterally. NEUROLOGICAL: Patient is awake, alert and oriented x3. Cranial nerves 2 through 12 are grossly intact. ASSESSMENT AND PLAN 1. Morbid obesity with BMI of 64 status post laparoscopic sleeve gastrectomy, postop day 1. Continue current pain management, diet is Yovany. Upper GI as above. Incentive spirometry to reduce incidence of atelectasis and hospital- acquired pneumonia. 2. Hypertension. Resume Toprol-XL 50 mg daily in the morning, lisinopril/hydrochlorothiazide with parameters. 3. Suspected obstructive sleep apnea. Patient will have workup as an outpatient. 4. Morbid obesity with BMI of 64. 5. Remote history of tobacco use and dependence. 6. DVT prophylaxis. Lovenox 60 mg subcu every 12 hours. 7. GI prophylaxis. Protonix IV. Discharge plan: home. Impression and plan of care have been directed as dictated by the signing physician. Tuyet Cervantes nurse practitioner acting as scribe for signing physician. Objective - Vital Signs Vital signs: Vital Signs Temp 98.4 F 03/12/20 07:08 Pulse 72 03/12/20 07:08 Resp 16 03/12/20 07:08 BP 137/76 03/12/20 07:08 Pulse Ox 93 L 03/12/20 07:08 Intake & Output 03/11/20 03/12/20 03/12/20 18:59 06:59 18:59 Intake Total 1600 Output Total 20 Balance 1580 Weight 215.5 kg Intake: IV 1600 Output: Estimated Blood Loss 20 Other: Voiding Method Urinal # Voids 3 - Labs CBC & Chem 7: 03/12/20 06:07 03/12/20 06:07 Labs: Abnormal Lab Results - Last 24 Hours (Table) 03/12/20 Range/Units 06:07 WBC 12.2 H (3.8-10.6) k/uL Neutrophils # 9.8 H (1.3-7.7) k/uL
[2020-03-12] MEDS: KETOROLAC 15 MG/ML 1 ML VIAL IVP SCH (17:36)
[2020-03-12] MEDS: LISINOPRIL-HCTZ 20-12.5 MG 1 EACH TAB PO SCH (21:27)
[2020-03-13] MEDS: KETOROLAC 15 MG/ML 1 ML VIAL IVP SCH ×3 (00:14→11:38)
[2020-03-13] MEDS: 1: MVI, ADULT NO.4 WITH VIT K 10 ML, THIAMINE 100 MG, FOLIC ACID 1 MG, POTASSIUM CHLORID IV SCH ×6 (06:02)
[2020-03-13] MEDS: LACTATED RINGERS 1,000 ML IV SCH (07:01)
[2020-03-13 07:33] VITALS: BP 117/71; RESP 18; TEMP 98.2
[2020-03-13] MEDS: ALBUTEROL NEBULIZED 2.5 MG/3 ML INHALATION SCH ×3 (08:51→15:33)
[2020-03-13] MEDS: METOPROLOL SUCCINATE (ER) 50 MG TAB.ER.24H PO SCH (08:56)
[2020-03-13] MEDS: PANTOPRAZOLE 40 MG/10 ML VIAL IV SCH (08:56)
[2020-03-13] MEDS: ENOXAPARIN 60 MG/0.6 ML SYRINGE SQ SCH (08:57)
[2020-03-13 09:02] VITALS: PULSE 56
--- NOTE | 2020-03-13 11:54 | P.PN ---
Subjective Progress Note Date: 03/13/20 HISTORY OF PRESENT ILLNESS This is a 39-year-old male patient of Dr. Chun with past medical history of hypertension, suspected obstructive sleep apnea-not tested, morbid obesity, remote history of tobacco use. Patient has been brought into the hospital by Dr. lane status post laparoscopic sleeve gastrectomy. Patient states that his pain is currently controlled. He is found sitting on the edge of the bed. He denies any lightheadedness or dizziness. No nausea. Blood pressure is 131/64, heart rate 71, pulse ox 96% on room air. 03/12: Patient is seen today in follow-up. He is ambulating with therapies down the smith and doing well. He has not passed gas. No nausea or vomiting. He has been afebrile, heart rate 72, blood pressure 137/76, pulse ox 93% on room air. WBC 12.2, hemoglobin 14.4, platelet count 175. Upper GI was completed this morning that revealed no evidence of obstruction or leak. Patient is to start a clear liquid diet today. Anticipate probable discharge home tomorrow. 03/13: Patient states he is tolerating diet, no nausea vomiting. He is currently on a bariatric clear diet. He has been ambulating in the hallway without lightheadedness or dizziness. Pain is controlled. He has been afebrile, heart rate 58, blood pressure 117/71, pulse ox 94% on room air. Incentive spirometry is 2250 ML's. Anticipate discharge home later today. REVIEW OF SYSTEMS Constitutional: No fever, no chills, no night sweats. No weight change. No weakness, fatigue or lethargy. EENT: No headache. No blurred vision. No dizziness. No epistaxis. No sore throat. Lungs: No shortness of breath, cough, no sputum production. No wheezing. Cardiovascular: No chest pain, no lower extremity edema. No lightheadedness or dizziness. No syncopal episodes. Abdominal: Mild abdominal discomfort. No nausea, vomiting. No diarrhea. No bloody or tarry stools. Genitourinary: No dysuria. No urinary retention. Musculoskeletal: No myalgias. No muscle weakness, no gait dysfunction, no frequent falls. No back pain. No neck pain. Integumentary: No wounds. No rash or pruritus. Neurologic: No aphasia. No facial droop. No change in mentation. No headache. Psychiatric: No depression. No anxiety. Endocrine: No abnormal blood sugars. PHYSICAL EXAMINATION Gen: This is a 39-year-old morbidly obese male. No acute distress. HEENT: Head is atraumatic, normocephalic. Pupils equal, round. Sclerae is anicteric. NECK: Supple. No JVD. No lymphadenopathy. No thyromegaly. LUNGS: Clear to auscultation. No wheezes or rhonchi. No intercostal retractions. HEART: Regular rate and rhythm. No murmur. ABDOMEN: Soft. Bowel sounds are present. No masses. No significant tenderness. Puncture sites show no significant drainage, bleeding, erythema. EXTREMITIES: No pitting pedal edema. No calf tenderness. Dorsalis pedis +2 bilaterally. NEUROLOGICAL: Patient is awake, alert and oriented x3. Cranial nerves 2 through 12 are grossly intact. ASSESSMENT AND PLAN 1. Morbid obesity with BMI of 64 status post laparoscopic sleeve gastrectomy, postop day 1. Continue current pain management, bariatric clear liquid diet. Upper GI as above. Incentive spirometry to reduce incidence of atelectasis and hospital-acquired pneumonia. 2. Hypertension. Resume Toprol-XL 50 mg daily in the morning, lisinopril/hydrochlorothiazide with parameters. 3. Suspected obstructive sleep apnea. Patient will have workup as an outpatient. 4. Morbid obesity with BMI of 64. 5. Remote history of tobacco use and dependence. 6. DVT prophylaxis. Lovenox 60 mg subcu every 12 hours. 7. GI prophylaxis. Protonix IV. Discharge plan: home. Impression and plan of care have been directed as dictated by the signing physician. Tuyet Cervantes nurse practitioner acting as scribe for signing physician. Objective - Vital Signs Vital signs: Vital Signs Temp 98.2 F 03/13/20 07:00 Pulse 58 L 03/13/20 07:00 Resp 18 03/13/20 07:00 BP 117/71 03/13/20 07:00 Pulse Ox 94 L 03/13/20 07:00 Intake & Output 03/12/20 03/13/20 03/13/20 18:59 06:59 18:59 Intake Total 1621.2 Balance 1621.2 Weight 215.5 kg Intake: Intake, IV Titration 1021.2 Amount Mvi, Adult No.4 with Vit 1021.2 K 10 ml Thiamine 100 mg Folic Acid 1 mg Potassium Chloride 20 meq In Sodium Chloride 0.9% 1, 000 ml @ 100 mls/hr IV . BY DURATION [facility] Rx#: [id number] Oral 600 Other: Voiding Method Toilet # Voids 1 1 - Labs CBC & Chem 7: 03/12/20 06:07 03/12/20 06:07
--- NOTE | 2020-03-13 13:29 | P.DS ---
<Siri Rodríguez - Last Filed: 03/13/20 13:27> Providers Expected date of discharge: 03/13/20 Hospital Course: Discharge diagnosis 1. Morbid obesity status post laparoscopic sleeve gastrectomy 2. GERD 3. Hypertension Hospital course This is a 39-year-old male with a known history of morbid obesity, GERD and hypertension. He is status post Laparoscopic sleeve gastrectomy with Dr. Monk. He tolerated surgery well. He is tolerating a bariatric clear liquid diet. Upper GI was negative for any leak or obstruction. Patient is up and ambulating. He is having bowel movements. He is afebrile. He is stable for discharge. Physician Patrol Community Service Officer note has been reviewed by physician. Signing provider agrees with the documented findings, assessment, and plan of care. Patient Condition at Discharge: Stable Plan - Discharge Summary Discharge Rx Participant: Yes New Discharge Prescriptions: New bisacodyL [Dulcolax] 5 mg PO DAILY PRN #10 tablet. PRN Reason: Constipation Simethicone 40 mg/0.6 ml Drops [Mylicon Drops] 40 mg PO PCHS PRN #30 ml PRN Reason: Gas Omeprazole [PriLOSEC] 40 mg PO DAILY #30 capsule. Ondansetron Odt [Zofran Odt] 4 mg PO Q8HR PRN #9 tab PRN Reason: Nausea Hydrocodone/Acetaminophen [Fitzgerald 5-325] 1 tab PO Q4HR PRN 3 Days #18 tab PRN Reason: Pain Continue Furosemide [Lasix] 20 mg PO HS Lisinopril-Hctz 20-12.5 mg [Zestoretic 20-12.5] 2 tab PO HS Metoprolol Succinate [Toprol XL] 50 mg PO DAILY Multivit-Min/Folic/Vit K/Lycop [Men's Multivitamin Tablet] 1 each PO DAILY Discharge Medication List Furosemide [Lasix] 20 mg PO HS 11/09/19 [History] Lisinopril-Hctz 20-12.5 mg [Zestoretic 20-12.5] 2 tab PO HS 12/11/19 [History] Metoprolol Succinate [Toprol XL] 50 mg PO DAILY 03/07/20 [History] Multivit-Min/Folic/Vit K/Lycop [Men's Multivitamin Tablet] 1 each PO DAILY 03/07/20 [History] Hydrocodone/Acetaminophen [Fitzgerald 5-325] 1 tab PO Q4HR PRN 3 Days #18 tab 03/13/20 [Rx] Omeprazole [PriLOSEC] 40 mg PO DAILY #30 capsule. 03/13/20 [Rx] Ondansetron Odt [Zofran Odt] 4 mg PO Q8HR PRN #9 tab 03/13/20 [Rx] Simethicone 40 mg/0.6 ml Drops [Mylicon Drops] 40 mg PO PCHS PRN #30 ml 03/13/20 [Rx] bisacodyL [Dulcolax] 5 mg PO DAILY PRN #10 tablet. 03/13/20 [Rx] Follow up Appointment(s)/Referral(s): Mike Monk MD [Medical Doctor] - 03/15/20 10:00 am (Appointment will be at the [facility] @ [facility]. Thank you.) Kortney Chun MD [Primary Care Provider] - 1 Week Patient Instructions/Handouts: *Surgery [facility] - Scopalamine Patch Instructions, Nutrition after Bariatric Surgery (DC), Laparoscopic Sleeve Gastrectomy (DC) Activity/Diet/Wound Care/Special Instructions: No driving while taking Fitzgerald No lifting over 10 pounds You may shower. No soaking or tub baths for 2 weeks Very light activity until you are reevaluated at your follow up appointment with your surgeon No carbonated beverages or straws Open, cut or crush all pills to the size smaller than a tic tac Discharge Disposition: HOME SELF-CARE <Mike Monk - Last Filed: 03/13/20 19:07> Providers Date of admission: 03/11/20 08:39 Attending physician: Mike Monk Consults: 03/11/20 13:23 Consult Physician Routine Consulting Provider: Kortney Chun Consult Reason/Comments: Medical management Do you want consulting provider notified?: Yes Primary care physician: Kortney Chun MD - Discharge Diagnosis(es) (1) Morbid obesity with BMI of 60.0-69.9, adult Status: Acute Hospital Course: As above. Patient doing well. May discharge today. Outpatient Lovenox will be arranged.
== END 2020-03-13 16:21 | disposition home or self-care (01) | DRG 621 ==
LOC: 2ORMAIN 08:39 → 4SSUR 13:54
PROVIDERS: ADMIT Surgery; ATTEND Surgery
PROC: 0DB64Z3 Excision of Stomach, Percutaneous Endoscopic Approach, Vertical (ICD-10-PCS; principal; 2020-03-11 10:15)
DX: E66.01 Morbid (severe) obesity due to excess calories (principal); Z68.44 Body mass index [BMI] 60.0-69.9, adult; I11.9 Hypertensive heart disease without heart failure; I83.90 Asymptomatic varicose veins of unspecified lower extremity; I87.8 Other specified disorders of veins; K21.9 Gastro-esophageal reflux disease without esophagitis; G47.33 Obstructive sleep apnea (adult) (pediatric); Z87.891 Personal history of nicotine dependence; Z79.899 Other long term (current) drug therapy; Z88.0 Allergy status to penicillin; Z80.8 Family history of malignant neoplasm of other organs or systems; Z80.3 Family history of malignant neoplasm of breast; Z81.1 Family history of alcohol abuse and dependence; Z82.61 Family history of arthritis; Z81.2 Family history of tobacco abuse and dependence
CPT/HCPCS: 74240; 80051; 82310; 82565; 83735; 84100; 84520; 85025; 88307; 94640

== ENCOUNTER → 2020-03-15 | Outpatient (CLI) | payer BC ==
[2020-03-15 10:34] VITALS: BP 128/78; PULSE 71; TEMP 98; BMI 64.2
== END | disposition home or self-care (01) ==
LOC: BARWHC3 09:57
PROVIDERS: ATTEND Surgery
DX: E66.01 Morbid (severe) obesity due to excess calories (principal); Z68.44 Body mass index [BMI] 60.0-69.9, adult; Z09 Encounter for follow-up examination after completed treatment for conditions other than malignant neoplasm; Z98.84 Bariatric surgery status
CPT/HCPCS: 99211

== ENCOUNTER → 2020-03-26 | Outpatient (CLI) | payer BC ==
[2020-03-26 15:18] VITALS: BP 109/74; PULSE 71; TEMP 98; BMI 61.5
--- NOTE | 2020-03-26 16:35 | P.BASOAP ---
Subjective Progress Note Date: 03/26/20 Principal diagnosis: Morbid obesity Patient returns for sleeve gastrectomy follow-up. Last seen 2 weeks ago. Has lost 20 pounds since that time. Apparently he was not taking his antiacids and thought they were 4 as needed reflux only. Thinks he may still be behind a little bit on his liquids. No dysphagia or. No nausea or vomiting. Denies pain. Urine has been a little dark at times. Objective - Vital Signs Vital signs: Vital Signs Temp 98 F 03/26/20 15:16 Pulse 71 03/26/20 15:16 Resp BP 109/74 03/26/20 15:16 Pulse Ox Intake & Output 03/25/20 03/26/20 03/26/20 18:59 06:59 18:59 Weight 207.292 kg - Exam Abdomen: Soft, nontender, nondistended, incisions clean and dry Assessment/Plan (1) Morbid obesity with BMI of 60.0-69.9, adult Narrative/Plan: Patient doing well today. Continue dietary and exercise regimen. May return to work with restrictions. Follow-up 2-3 weeks. We'll check labs at that time. Plan: Date: 03/26/20 Initial Weight: 229.064 kg Initial BMI: 68.0 Current Weight: 207.292 kg Current BMI: 61.5 Type of Surgery: Total Volume in Band: Previous Volume: Volume Removed: Volume Added: Band Size:
== END | disposition home or self-care (01) ==
LOC: BARWHC3 14:29
PROVIDERS: ATTEND Surgery
DX: E66.01 Morbid (severe) obesity due to excess calories (principal); Z68.44 Body mass index [BMI] 60.0-69.9, adult; Z71.3 Dietary counseling and surveillance
CPT/HCPCS: 97803; 99211

== ENCOUNTER → 2020-04-09 | Outpatient (CLI) | payer BC ==
--- NOTE | 2020-04-09 14:09 | P.BASOAP ---
Subjective Progress Note Date: 04/09/20 Principal diagnosis: Morbid obesity Patient doing well today. He was last seen 2 weeks ago. Over the last 2 weeks the patient has lost 13 pounds. He is now taking as antiacids. No heartburn. Denies nausea or vomiting. No pain. He has had a few episodes where he felt dizzy and almost passed out on one occasion. Currently taking metoprolol and lisinopril with hydrochlorothiazide daily. Was taking Lasix when necessary although states he only took one dose in the last several weeks. He is due for lab work. Systolic blood pressure today 90s. Objective - Exam Abdomen: Soft, nontender, nondistended Assessment/Plan (1) Morbid obesity with BMI of 60.0-69.9, adult Narrative/Plan: Patient overall doing fairly well. We will decrease his lisinopril to 1 tablet daily instead of 2. He will discuss this further with his primary care physician. Hold any additional Lasix. Check one month labs. Follow up one month. Plan: Date: Initial Weight: 229.064 kg Initial BMI: Current Weight: Current BMI: Type of Surgery: Total Volume in Band: Previous Volume: Volume Removed: Volume Added: Band Size:
[2020-04-09 14:25] VITALS: BP 97/67; PULSE 57; TEMP 98.2; BMI 60.0
== END | disposition home or self-care (01) ==
LOC: BARWHC3 13:39
PROVIDERS: ATTEND Surgery
DX: E66.01 Morbid (severe) obesity due to excess calories (principal); Z68.44 Body mass index [BMI] 60.0-69.9, adult
CPT/HCPCS: 99211

== ENCOUNTER → 2020-05-03 | Outpatient (CLI) | payer BC ==
[2020-05-03 07:53] LABS: HCT 38.5 % (39.0-53.0); HGB 12.9 gm/dL (13.0-17.5); MCH 29.5 pg (25.0-35.0); MCHC 33.5 g/dL (31.0-37.0); MCV 88.1 fL (80.0-100.0); Mean Platelet Volume 8.5; Platelet Count 133 k/uL (150-450); RBC 4.37 m/uL (4.30-5.90); RDW 14.3 % (11.5-15.5); WBC 4.8 k/uL (3.8-10.6)
[2020-05-03 11:07] LABS: ALT 31 U/L (10-49); AST 19 U/L (14-35); African American GFR (CKD) 130.4 (60.0-200.0); Alkaline Phosphatase 59 U/L (41-126); BUN/Creat Ratio 21.25 Ratio (12.00-20.00); Calcium 9.4 mg/dL (8.7-10.3); Carbon Dioxide 28.3 mmol/L (21.6-31.8); Chloride 108 mmol/L (96-109); Glucose 81 mg/dL (70-110); Iron 63 ug/dL (65-175); Non-African American GFR(CKD) 112.5 (60.0-200.0); Sodium 143 mmol/L (135-145); Total Bilirubin 0.7 mg/dL (0.2-1.2)
[2020-05-03 11:22] LABS: Folate, Serum >24.0 ng/mL
== END | disposition home or self-care (01) ==
LOC: LABWHC1 07:12
PROVIDERS: ATTEND Surgery
DX: E55.9 Vitamin D deficiency, unspecified (principal); K90.89 Other intestinal malabsorption; E66.01 Morbid (severe) obesity due to excess calories
CPT/HCPCS: 36415; 80053; 82306; 82607; 82746; 83540; 84425; 85027

== ENCOUNTER → 2020-05-07 | Outpatient (CLI) | payer BC ==
--- NOTE | 2020-05-08 15:59 | PN ---
PROGRESS NOTE BARIATRIC PROGRESS NOTE: DATE OF SERVICE: 05/07/2020 INTERVAL HISTORY: The patient returns for re-evaluation. He underwent sleeve gastrectomy 03/11. Doing well. Denies reflux. No pain. Weight is up by 2 pounds. Iron last visit was slightly low. The patient is maintaining a 900-1000 calorie diet. Denies heartburn. Will see Dietary today. Denies pain. On physical exam, his abdomen is soft, non-tender, non-distended. Incision is clean and dry. IMPRESSION/PLAN: [id number]-old male doing well after recent sleeve gastrectomy. Will increase his exercise level at this point. Return visit in 4-6 weeks. Check 3-month labs at that time. Patient to be seen by dietitian today. MMODL / IJN: [id number] /
== END | disposition home or self-care (01) ==
CPT/HCPCS: 97803; 99211

== ENCOUNTER → 2020-06-25 | Outpatient (CLI) | payer BC ==
[2020-06-25 15:16] VITALS: BMI 56.7
[2020-06-25 15:27] VITALS: BP 133/82; PULSE 51; RESP 16; TEMP 98.1
--- NOTE | 2020-06-25 16:34 | P.BASOAP ---
Subjective Progress Note Date: 06/25/20 Principal diagnosis: Morbid obesity Patient returns for recheck. Sleeve gastrectomy 3 months ago. Doing well. Blood pressure is been stable. Only taking Toprol now. No syncopal episodes. Denies heartburn. No pain. Exercising more lately. Labs done in April show a slightly low iron level. Objective - Vital Signs Vital signs: Vital Signs Temp 98.1 F 06/25/20 15:24 Pulse 51 L 06/25/20 15:24 Resp 16 06/25/20 15:24 BP 133/82 06/25/20 15:24 Pulse Ox Intake & Output 06/24/20 06/25/20 06/25/20 18:59 06:59 18:59 Weight 190.962 kg - Exam Abdomen: Soft, nontender, nondistended Assessment/Plan (1) Morbid obesity with BMI of 60.0-69.9, adult Narrative/Plan: Patient doing well at this time. We'll plan for checking labs next visit. Follow-up 6 weeks. Consider trying antiacid therapy every other day. Plan: Date: 06/25/20 Initial Weight: 229.064 kg Initial BMI: 68.0 Current Weight: 190.962 kg Current BMI: 56.7 Type of Surgery: Vertical Sleeve Gastrectomy Total Volume in Band: Previous Volume: Volume Removed: Volume Added: Band Size:
== END | disposition home or self-care (01) ==
LOC: BARWHC3 14:24
PROVIDERS: ATTEND Surgery
DX: Z48.815 Encounter for surgical aftercare following surgery on the digestive system (principal); E66.01 Morbid (severe) obesity due to excess calories; Z68.44 Body mass index [BMI] 60.0-69.9, adult
CPT/HCPCS: 97803; 99211

== ENCOUNTER → 2020-08-06 | Outpatient (CLI) | payer BC ==
[2020-08-06 13:27] VITALS: BP 135/89; PULSE 55; RESP 16; TEMP 99.4; BMI 54.5
[2020-08-06 14:23] LABS: HCT 44.6 % (39.0-53.0); HGB 15.1 gm/dL (13.0-17.5); MCHC 33.9 g/dL (31.0-37.0); MCV 85.7 fL (80.0-100.0); Mean Platelet Volume 7.5; Platelet Count 161 k/uL (150-450); RBC 5.21 m/uL (4.30-5.90); RDW 13.3 % (11.5-15.5); WBC 8.7 k/uL (3.8-10.6)
--- NOTE | 2020-08-06 15:10 | P.BASOAP ---
Subjective Progress Note Date: 08/06/20 Principal diagnosis: Morbid obesity Patient doing well. Last seen in May. He stopped his antiacid therapy. No reflux. No vomiting. He has lost 15 pounds. He is due for lab work today. Not exercising much. Objective - Vital Signs Vital signs: Vital Signs Temp 99.4 F 08/06/20 13:24 Pulse 55 L 08/06/20 13:24 Resp 16 08/06/20 13:24 BP 135/89 08/06/20 13:24 Pulse Ox Intake & Output 08/05/20 08/06/20 08/06/20 18:59 06:59 18:59 Weight 183.705 kg - Exam Abdomen: Soft, nontender, nondistended - Labs CBC & Chem 7: 08/06/20 14:02 Assessment/Plan (1) Morbid obesity with BMI of 60.0-69.9, adult Narrative/Plan: Patient doing well at this time. Continue off antiacids. Increase exercise. Check lab work today. Follow-up 6 weeks. Plan: Date: 08/06/20 Initial Weight: 229.064 kg Initial BMI: 68.0 Current Weight: 183.705 kg Current BMI: 54.5 Type of Surgery: Total Volume in Band: Previous Volume: Volume Removed: Volume Added: Band Size:
[2020-08-06 19:44] LABS: ALT 18 U/L (10-49); AST 18 U/L (14-35); African American GFR (CKD) 129.5 (60.0-200.0); Albumin/Globulin Ratio 1.95 (1.60-3.17); Alkaline Phosphatase 79 U/L (41-126); BUN/Creat Ratio 23.75 Ratio (12.00-20.00); Calcium 9.4 mg/dL (8.7-10.3); Carbon Dioxide 29.2 mmol/L (21.6-31.8); Chloride 105 mmol/L (96-109); Globulin 2.2 g/dL (1.6-3.3); Glucose 90 mg/dL (70-110); Iron 66 ug/dL (65-175); Non-African American GFR(CKD) 111.7 (60.0-200.0); Potassium 4.2 mmol/L (3.5-5.5); Sodium 140 mmol/L (135-145); Total Bilirubin 0.6 mg/dL (0.2-1.2); Total Protein 6.5 g/dL (6.2-8.2)
[2020-08-06 20:13] LABS: Folate, Serum >24.0 ng/mL
== END ==
LOC: BARWHC3 13:01
PROVIDERS: ATTEND Surgery
DX: E66.01 Morbid (severe) obesity due to excess calories (principal); Z68.44 Body mass index [BMI] 60.0-69.9, adult
CPT/HCPCS: 80053; 82306; 82607; 82746; 83540; 84425; 85027; 99211

== ENCOUNTER → 2020-09-24 | Outpatient (CLI) | payer BC ==
[2020-09-24 14:52] VITALS: BP 127/85; PULSE 51; TEMP 98.1; BMI 52.2
--- NOTE | 2020-09-24 16:01 | P.BASOAP ---
Subjective Progress Note Date: 09/24/20 Principal diagnosis: Morbid obesity Patient doing well today. Last seen in July. He has lost 17 pounds. He had 1 episode of vomiting last week after eating too quickly. Labs checked last visit were normal. He is working quite a bit but also finding time to exercise. No longer taking antiacids. Objective - Vital Signs Vital signs: Vital Signs Temp 98.1 F 09/24/20 14:42 Pulse 51 L 09/24/20 14:42 Resp BP 127/85 09/24/20 14:42 Pulse Ox Intake & Output 09/23/20 09/24/20 09/24/20 18:59 06:59 18:59 Weight 175.994 kg - Exam Abdomen: Soft, nontender, nondistended Assessment/Plan (1) Morbid obesity with BMI of 60.0-69.9, adult Narrative/Plan: Patient doing well at this time. Continues to lose weight nicely. Continue exercising and dietary regimen. Return visit in 6-8 weeks. Check 6 month labs at that time. Plan: Date: 09/24/20 Initial Weight: 229.064 kg Initial BMI: 68.0 Current Weight: 175.994 kg Current BMI: 52.2 Type of Surgery: Total Volume in Band: Previous Volume: Volume Removed: Volume Added: Band Size:
== END ==
LOC: BARWHC3 13:35
PROVIDERS: ATTEND Surgery
DX: E66.01 Morbid (severe) obesity due to excess calories (principal); Z68.43 Body mass index [BMI] 50.0-59.9, adult; Z87.891 Personal history of nicotine dependence
CPT/HCPCS: 99211

== ENCOUNTER → 2020-10-04 | Outpatient (CLI) | payer BC ==
--- NOTE | 2020-10-06 11:00 | ECHOF ---
Referral Reason:I50.30 diastolic heart failure MEASUREMENTS -------- HEIGHT: 182.9 cm WEIGHT: 174.6 kg BP: RVIDd: 3.0 cm (< 3.3) IVSd: 1.4 cm (0.6 - 1.1) LVIDd: 5.6 cm (3.9 - 5.3) LVPWd: 1.4 cm (0.6 - 1.1) IVSs: 1.9 cm LVIDs: 4.0 cm LVPWs: 1.7 cm LA Diam: 4.0 cm (2.7 - 3.8) Ao Diam: 3.5 cm (2.0 - 3.7) AV Cusp: 2.4 cm (1.5 - 2.6) LA Diam: 4.2 cm (2.7 - 3.8) MV EXCURSION: 24.208 mm (> 18.000) MV EF SLOPE: 109 mm/s (70 - 150) EPSS: 0.4 cm MV E Andres: 0.97 m/s MV DecT: 219 ms MV A Andres: 0.63 m/s MV E/A Ratio: 1.53 RAP: 5.00 mmHg RVSP: 34.83 mmHg FINDINGS -------- Sinus rhythm. This was a technically adequate study. The left ventricular size is normal. There is moderate concentric left ventricular hypertrophy. O verall left ventricular systolic function is normal with, an EF between 55 - 60 %. The right ventricle is normal in size. The left atrial size is normal. The right atrial size is normal. The aortic valve is trileaflet, and appears structurally normal. No aortic stenosis or regurgitation. Mild mitral regurgitation is present. Mild tricuspid regurgitation present. There is mild pulmonary hypertension. There is no pulmonic regurgitation present. Echo free space indicative of a pericardial fat pad. CONCLUSIONS -------- 1. The left ventricular size is normal. 2. There is moderate concentric left ventricular hypertrophy. 3. Overall left ventricular systolic function is normal with, an EF between 55 - 60 %. 4. The right ventricle is normal in size. 5. The left atrial size is normal. 6. The right atrial size is normal. 7. The aortic valve is trileaflet, and appears structurally normal. No aortic stenosis or regurgitati on. 8. Mild mitral regurgitation is present. 9. Mild tricuspid regurgitation present. 10. There is mild pulmonary hypertension. 11. Echo free space indicative of a pericardial fat pad. RN MATERNAL CHILD: Roberta Godinez RDCS
== END | disposition home or self-care (01) ==
LOC: RADECHMAIN 13:08
PROVIDERS: ATTEND Internal Medicine
DX: I08.1 Rheumatic disorders of both mitral and tricuspid valves (principal); I27.20 Pulmonary hypertension, unspecified
CPT/HCPCS: 93306

== ENCOUNTER → 2020-12-20 | Outpatient (CLI) | payer BC ==
[2020-12-20 15:53] LABS: HCT 46.2 % (39.6-50.0); HGB 15.1 g/dL (13.0-17.0); MCH 29.4 pg (27.0-32.0); MCHC 32.7 g/dL (32.0-37.0); MCV 89.9 fL (80.0-97.0); Mean Platelet Volume 11.2 fL (9.5-12.2); Platelet Count 151 X 10*3/uL (140-440); RBC 5.14 X 10*6/uL (4.40-5.60); RDW 13.5 % (11.5-14.5)
[2020-12-20 21:12] LABS: ALT 26 U/L (10-49); AST 29 U/L (14-35); African American GFR (CKD) 136.8 (60.0-200.0); Albumin/Globulin Ratio 1.56 (1.60-3.17); Alkaline Phosphatase 92 U/L (41-126); Calcium 9.4 mg/dL (8.7-10.3); Carbon Dioxide 27.6 mmol/L (21.6-31.8); Chloride 106 mmol/L (96-109); Chol/HDL Ratio 3.82; Cholesterol 149 mg/dL (0-200); Globulin 2.7 g/dL (1.6-3.3); Glucose 81 mg/dL (70-110); Iron 81 ug/dL (65-175); LDL Cholesterol,Calculated 83.8 mg/dL (0.0-131.0); Potassium 4.2 mmol/L (3.5-5.5); Sodium 143 mmol/L (135-145); Total Bilirubin 0.7 mg/dL (0.2-1.2); Total Protein 6.9 g/dL (6.2-8.2)
[2020-12-20 21:32] LABS: Folate, Serum >24.0 ng/mL
== END | disposition home or self-care (01) ==
LOC: LABWHC1 08:35
PROVIDERS: ATTEND Surgery
DX: I10 Essential (primary) hypertension (principal); E66.01 Morbid (severe) obesity due to excess calories; E55.9 Vitamin D deficiency, unspecified; K90.89 Other intestinal malabsorption; Z98.84 Bariatric surgery status
CPT/HCPCS: 36415; 80053; 80061; 82306; 82607; 82746; 83540; 84425; 84443; 85027

== ENCOUNTER 2021-09-25 12:58 | Emergency (ER) | payer BC ==
[2021-09-25 13:41] LABS: ALT 25 U/L (4-49); AST 50 U/L (17-59); African American GFR (CKD) >90 (>60 ml/min/1.73 sqM); Albumin 4.3 g/dL (3.5-5.0); Alkaline Phosphatase 83 U/L (38-126); Anion Gap 10 mmol/L; Basophils % (A) 1 %; Blood Urea Nitrogen 17 mg/dL (9-20); Calcium 9.5 mg/dL (8.4-10.2); Carbon Dioxide 23 mmol/L (22-30); Chloride 107 mmol/L (98-107); Eosinophils # (A) 0.5 k/uL (0-0.7); Eosinophils % (A) 6 %; Glucose 97 mg/dL (74-99); HCT 45.6 % (39.0-53.0); HGB 15.9 gm/dL (13.0-17.5); Lymphocytes # (A) 2.3 k/uL (1.0-4.8); Lymphocytes % (A) 29 %; MCHC 34.9 g/dL (31.0-37.0); MCV 88.7 fL (80.0-100.0); Mean Platelet Volume 7.4; Monocytes # (A) 0.3 k/uL (0-1.0); Monocytes % (A) 4 %; Neutrophils # (A) 4.7 k/uL (1.3-7.7); Neutrophils % (A) 58 %; Non-African American GFR(CKD) >90 (>60 ml/min/1.73 sqM); Platelet Count 179 k/uL (150-450); Potassium 3.9 mmol/L (3.5-5.1); RBC 5.14 m/uL (4.30-5.90); RDW 12.7 % (11.5-15.5); Sodium 140 mmol/L (137-145); Total Bilirubin 0.7 mg/dL (0.2-1.3); Total Protein 7.6 g/dL (6.3-8.2)
--- NOTE | 2021-09-25 13:45 | XR ---
EXAMINATION TYPE: XR chest 2V DATE OF EXAM: 09/25/2021 COMPARISON: Chest x-ray 07/28/2018 HISTORY: Chest pain and hypertension, low back pain TECHNIQUE: Frontal and lateral views of the chest are obtained on 3 images. FINDINGS: There is no focal air space opacity, pleural effusion, or pneumothorax seen. The cardiac silhouette size is within normal limits. The osseous structures are intact, there is thoracic spond ylosis. IMPRESSION: No acute cardiopulmonary process.
[2021-09-25 13:50] LABS: Partial Thromboplastin Time 25.5 sec (22.0-30.0); Prothrombin Time 10.9 sec (9.0-12.0)
[2021-09-25] MEDS ORDERED: ASPIRIN 81 MG PO STA (15:04)
--- NOTE | 2021-09-25 16:24 | ED ---
General Adult HPI - General Chief complaint: Chest Pain Stated complaint: Chest pain/back pain Time Seen by Provider: 09/25/21 15:00 Source: patient, RN notes reviewed, old records reviewed Mode of arrival: ambulatory Limitations: no limitations - History of Present Illness Initial comments: Patient is a 41-year-old male with past medical history remarkable for hypertension, as well as prior heart failure occasionally drink alcohol presents emergency Department complaining of acute onset of chest pain at home. States is in the center of his chest. Denies any other symptoms at that time. Is since resolved. Resolved prior to arrival to the emergency department. Symptoms started about noon. He is currently asymptomatic. States that the pain was just to the right of midline on the right side. Described as a sharp sensation. No known palliative or provocative factors. Denies any radiation. No cardiac history in himself, however grandmother had her first heart attack at age 41. Presents for further evaluation. Denies any fevers, chills, cough. Denies any history of orthopnea, PND, lower extremity edema. Denies any history of blood clots. - Related Data Home Medications Medication Instructions Recorded Confirmed Metoprolol Succinate (ER) [Toprol 50 mg PO DAILY 09/25/21 09/25/21 Xl] Allergies Allergy/AdvReac Type Severity Reaction Status Date / Time Penicillins Allergy Shortness Verified 09/25/21 15:45 of breath Review of Systems ROS Statement: Those systems with pertinent positive or pertinent negative responses have been documented in the HPI. Review of Systems: CONST: Denies fever EYES: Denies blurry vision ENT: Denies nasal congestion C/V: Endorses resolved chest pain. RESP: Denies shortness of breath GI: Denies abdominal pain : Denies dysuria SKIN: Denies rash. MSK: Denies joint pain. NEURO: Denies headache ROS Other: All systems not noted in ROS Statement are negative. Past Medical History Past Medical History: Heart Failure, Hypertension Additional Past Medical History / Comment(s): states enlarged heart, sleep apnea- no machine, varicose veins. History of Any Multi-Drug Resistant Organisms: None Reported Past Surgical History: Bariatric Surgery Additional Past Surgical History / Comment(s): VEIN STRIPPING, laser sx maricruz legs, wisdom teeth sleeve gastrectomy 03-11-20 Past Anesthesia/Blood Transfusion Reactions: No Reported Reaction Past Psychological History: Anxiety Smoking Status: Former smoker Past Alcohol Use History: Daily Past Drug Use History: None Reported - Past Family History Mother Family Medical History: Cancer Additional Family Medical History / Comment(s): breast and thyroid General Exam - General Exam Comments Initial Comments: General: Appears in no acute distress. HEAD: Normal with no signs of head trauma. EYES: PERRLA, EOMI, conjunctiva normal, no discharge. ENT: Hearing grossly intact, normal oropharynx. RESPIRATORY: Clear breath sounds bilaterally. No wheezes, rales, or rhonchi. C/V: Regular rate and rhythm. S1 and S2 auscultated, no edema, peripheral pulses 2+ and intact throughout ABD: Abd is soft, nontender, nondistended EXT: Normal range of motion, no obvious deformity SKIN: No rashes or lesions observed on exposed skin. NEURO: Alert and oriented x 4. Cranial nerves II-XII intact. No focal sensory or strength deficits. Limitations: no limitations Course Vital Signs 09/25/21 09/25/21 13:00 17:05 Temperature 98.4 F 98.0 F Pulse Rate 77 56 L Respiratory 16 18 Rate Blood Pressure 188/100 135/76 O2 Sat by Pulse 100 98 Oximetry Medical Decision Making - Medical Decision Making Based on patient's presentation physical exam, I'm concerned for possible cardio pulmonary etiology for his current symptoms. Workup was started in triage. There is remarkable for a undetectable troponin. Remainder the labs are unremarkable. Chest x-ray showed no acute cardiopulmonary process. EKG showed no signs of acute ischemia. I did order the patient an aspirin. I did discuss with him due to his family medical history, I did offer him admission versus staying for repeat troponin 1 hour, it'll be a 3 hour troponin. Elected to stay but did not want to be admitted. He is asymptomatic at this time. Troponin returned and remained undetectable. Patient remained asymptomatic. Vital signs remained within normal limits and stable. I believe it is safer to be discharged home at this time. Heart scores 2, and low. He was in agreement this plan. I recommended he follow up with the cabinet professional after following up with his PCP. I instructed the patient to follow up with their PCP in the next 3 days . I explained that the patient should return to the emergency department if they experience any worsening symptoms. Strict return precautions were discussed with the patient. The patient expressed understanding of these instructions. I answered all questions that the patient had. The patient was discharged home in good condition with their prescriptions and follow up information. - Lab Data Result diagrams: 09/25/21 13:11 09/25/21 13:11 Lab Results 09/25/21 09/25/21 09/25/21 Range/Units 13:11 13:11 13:11 WBC 8.0 (3.8-10.6) k/uL RBC 5.14 (4.30-5.90) m/uL Hgb 15.9 (13.0-17.5) gm/dL Hct 45.6 (39.0-53.0) % MCV 88.7 (80.0-100.0) fL MCH 31.0 (25.0-35.0) pg MCHC 34.9 (31.0-37.0) g/dL RDW 12.7 (11.5-15.5) % Plt Count 179 (150-450) k/uL MPV 7.4 Neutrophils % 58 % Lymphocytes % 29 % Monocytes % 4 % Eosinophils % 6 % Basophils % 1 % Neutrophils # 4.7 (1.3-7.7) k/uL Lymphocytes # 2.3 (1.0-4.8) k/uL Monocytes # 0.3 (0-1.0) k/uL Eosinophils # 0.5 (0-0.7) k/uL Basophils # 0.0 (0-0.2) k/uL PT 10.9 (9.0-12.0) sec INR 1.0 (<1.2) APTT 25.5 (22.0-30.0) sec Sodium 140 (137-145) mmol/L Potassium 3.9 (3.5-5.1) mmol/L Chloride 107 (98-107) mmol/L Carbon Dioxide 23 (22-30) mmol/L Anion Gap 10 mmol/L BUN 17 (9-20) mg/dL Creatinine 0.74 (0.66-1.25) mg/dL Est GFR (CKD-EPI)AfAm >90 (>60 ml/min/1.73 sqM) Est GFR (CKD-EPI)NonAf >90 (>60 ml/min/1.73 sqM) Glucose 97 (74-99) mg/dL Calcium 9.5 (8.4-10.2) mg/dL Magnesium 2.0 (1.6-2.3) mg/dL Total Bilirubin 0.7 (0.2-1.3) mg/dL AST 50 (17-59) U/L ALT 25 (4-49) U/L Alkaline Phosphatase 83 (38-126) U/L Troponin I (0.000-0.034) ng/mL NT-Pro-B Natriuret Pep pg/mL Total Protein 7.6 (6.3-8.2) g/dL Albumin 4.3 (3.5-5.0) g/dL 09/25/21 09/25/21 09/25/21 Range/Units 13:11 13:11 16:20 WBC (3.8-10.6) k/uL RBC (4.30-5.90) m/uL Hgb (13.0-17.5) gm/dL Hct (39.0-53.0) % MCV (80.0-100.0) fL MCH (25.0-35.0) pg MCHC (31.0-37.0) g/dL RDW (11.5-15.5) % Plt Count (150-450) k/uL MPV Neutrophils % % Lymphocytes % % Monocytes % % Eosinophils % % Basophils % % Neutrophils # (1.3-7.7) k/uL Lymphocytes # (1.0-4.8) k/uL Monocytes # (0-1.0) k/uL Eosinophils # (0-0.7) k/uL Basophils # (0-0.2) k/uL PT (9.0-12.0) sec INR (<1.2) APTT (22.0-30.0) sec Sodium (137-145) mmol/L Potassium (3.5-5.1) mmol/L Chloride (98-107) mmol/L Carbon Dioxide (22-30) mmol/L Anion Gap mmol/L BUN (9-20) mg/dL Creatinine (0.66-1.25) mg/dL Est GFR (CKD-EPI)AfAm (>60 ml/min/1.73 sqM) Est GFR (CKD-EPI)NonAf (>60 ml/min/1.73 sqM) Glucose (74-99) mg/dL Calcium (8.4-10.2) mg/dL Magnesium (1.6-2.3) mg/dL Total Bilirubin (0.2-1.3) mg/dL AST (17-59) U/L ALT (4-49) U/L Alkaline Phosphatase (38-126) U/L Troponin I <0.012 <0.012 (0.000-0.034) ng/mL NT-Pro-B Natriuret Pep 43 pg/mL Total Protein (6.3-8.2) g/dL Albumin (3.5-5.0) g/dL - EKG Data -: EKG Interpreted by Me EKG Comments: 12-lead Electrocardiogram Interpretation Note EKG was reviewed and interpreted by myself. 12-lead ECG performed at 1311 is interpreted by me as revealing normal sinus rhythm at a rate of 66 beats per minute. [place] is normal. [place] interval is 152 ms, QRS duration is 119 ms, QTc is 411 ms.. There were no ST or T wave abnormalities to suggest myocardial ischemia or injury. R wave progression across the precordium was satisfactory. By my interpretation this EKG is non-diagnostic for acute ischemia. Disposition Clinical Impression: Chest pain of unknown etiology Disposition: HOME SELF-CARE Condition: Good Instructions (If sedation given, give patient instructions): Chest Pain (ED) Is patient prescribed a controlled substance at d/c from ED?: No Referrals: Lenin Dumont MD [Primary Care Provider] - 1-2 days Time of Disposition: 17:20
[2021-09-25 17:08] VITALS: BP 135/76; PULSE 56; RESP 18; TEMP 98
== END 2021-09-25 17:31 | disposition home or self-care (01) ==
LOC: EC 12:58
DX: R07.89 Other chest pain (principal); I11.0 Hypertensive heart disease with heart failure; I50.9 Heart failure, unspecified; Z87.891 Personal history of nicotine dependence; Z79.899 Other long term (current) drug therapy
CPT/HCPCS: 36415; 71046; 80053; 83735; 83880; 84484; 85025; 85610; 85730; 93005; 99285

== ENCOUNTER → 2021-10-09 | Outpatient (CLI) | payer BC ==
--- NOTE | 2021-10-09 11:51 | CA ---
Exercise Stress Test Report Name: Samson Walker Exam Date: 10/09/2021 10:22 Exam Location: [place] Stress Ht (in): 72 Wt (lb): 381 BSA: 2.80 Ordering Phys: Lenin Dumont MD Referring Phys: Yasmeen Ni Technologist: Joseph Amaya Age: 41 Gender: M : 1980 Procedure CPT: Indications: R07.9 CHEST PAIN ICD-10 Codes: Patient History: CHEST PAIN Medications: METOPROLOL, MULTI VIT, CALCIUM, VIT D, VIT B12 Meds past 24 hrs: Pretest Chest Pain: STRESS TEST Bin Protocol Exercise Duration (min:sec): 09:[address] Depressions (mm): Angina Score: Ferguson Score: Resting HR (bpm): 60 Peak HR (bpm): 165 Resting BP (mmHg): 144 / 87 Peak BP (mmHg): 211 / 86 MPHR: 179 Target HR: 152 % MPHR: 92 METS: 10.3 Total Dose: Peak Dose: Atropine: Double Product: 27962 BP Response: Stress Termination: TARGET HR REACHED/MAX EXERTION Stress Symptoms: NO SYMPTOMS Stress Summary: ECG ANALYSIS Resting ECG: Normal sinus rhythm with poor R-wave progression suggestive of prior anteroseptal myocardial infarction Stress ECG: No significant ST segment depression CONCLUSIONS Good exercise tolerance Negative stress test by EKG criteria Dr. Piotr Gomez MD (Electronically Signed) Final Date: 09 Oct 2021 11:50
== END | disposition home or self-care (01) ==
LOC: RADNMMAIN 10:04
PROVIDERS: ATTEND Internal Medicine Geriatric Medicine
DX: R07.9 Chest pain, unspecified (principal)
CPT/HCPCS: 93017

== ENCOUNTER → 2023-01-11 | Outpatient (CLI) | payer BC ==
--- NOTE | 2023-01-11 17:01 | CA ---
Transthoracic Echo Report Name: Samson Walker Age: 42 Gender: M : 1980 Exam Date: 01/11/2023 16:02 Exam Location: [place] Echo Ht (in): 72 Wt (lb): 390 Ordering Physician: Lenin Dumont MD Attending/Referring Phys: Oriana Rodriguez [facility] [employer] Super[employer] Arpit Kovacs Procedure CPT: Indications: I50.30 Cardiac Hx: Technical Quality: Very technically difficult study Contrast 1: Lumason Total Dose (mL): 5 Contrast 2: Total Dose (mL): MEASUREMENTS (Male / Female) Normal Values 2D ECHO LV Diastolic Diameter PLAX 4.4 cm 4.2 - 5.9 / 3.9 - 5.3 cm LV Systolic Diameter PLAX 3.0 cm IVS Diastolic Thickness 1.7 cm 0.6 - 1.0 / 0.6 - 0.9 cm LVPW Diastolic Thickness 1.3 cm 0.6 - 1.0 / 0.6 - 0.9 cm LV Relative Wall Thickness 0.7 RV Internal Dim ED PLAX 3.7 cm LVOT Diameter 2.5 cm Aortic Root Diameter 3.0 cm LV Diastolic Volume MOD 4C 97.5 cm??? LV Systolic Volume MOD 4C 58.8 cm??? LV Ejection Fraction MOD 4C 39.7 % LV Cardiac Index MOD 4C 625.4 cm???/min???m??? LV Diastolic Length 4C 8.4 cm LV Systolic Length 4C 7.5 cm LA Volume 87.0 cm??? 18 - 58 / 22 - 52 cm??? Ascending Aorta Diameter 2.8 cm DOPPLER AV Peak Velocity 121.9 cm/s AV Peak Gradient 5.9 mmHg LVOT Peak Velocity 96.9 cm/s LVOT Peak Gradient 3.8 mmHg AV Area Cont Eq pk 4.0 cm??? MV Peak Velocity 101.1 cm/s MV Peak Gradient 4.1 mmHg MV Mean Velocity 41.2 cm/s MV Mean Gradient 0.9 mmHg MV Velocity Time Integral 42.7 cm MV Area PHT 2.9 cm??? Mitral E Point Velocity 77.9 cm/s Mitral A Point Velocity 42.5 cm/s Mitral E to A Ratio 1.8 MV Deceleration Time 265.9 ms TR Peak Velocity 212.4 cm/s TR Peak Gradient 18.0 mmHg Right Ventricular Systolic Press 23.0 mmHg PV Peak Velocity 112.0 cm/s PV Peak Gradient 5.0 mmHg FINDINGS Left Ventricle Normal LV size. Mild concentric LVH.left ventricular ejection fraction is estimated at 50-55 %. Right Ventricle Mild right ventricular dilatation. RVSP= 23mmhg. Right Atrium Normal right atrial size. Left Atrium Normal left atrial size. LA volume index= 31ml/m2 Mitral Valve Grossly normal.no mitral stenosis. No mitral regurgitation. Aortic Valve Not well visualized yet grossly normal.no aortic regurgitation. No aortic stenosis. Tricuspid Valve Tricuspid valve not well visualized. Mild TR. Pulmonic Valve Pulmonic valve not well visualized. No pulmonic regurgitation. Pericardium Not well visualized. Aorta Normal size aortic root and proximal ascending aorta. CONCLUSIONS Technically suboptimal study secondary to poor echo windows related to morbid obesity Left ventricular function appears normal Previewed by: Dr. Piotr Gomez MD (Electronically Signed) Final Date: 11 January 2023 17:00
== END | disposition home or self-care (01) ==
LOC: RADECHMAIN 15:53
PROVIDERS: ATTEND Internal Medicine Geriatric Medicine
DX: I50.30 Unspecified diastolic (congestive) heart failure (principal)
CPT/HCPCS: 93306; Q9950